=== PATIENT | male | born 1985 | race Caucasian/White ===

== ENCOUNTER 2020-09-20 08:48 | Emergency (ER) | payer BC, SELFPAY ==
[2020-09-20 09:00] VITALS: BP 150/110; PULSE 75; RESP 18; TEMP 37.1; O2SAT 100; BMI 25.0
[2020-09-20 09:06] VITALS: BP 132/108; PULSE 79; RESP 18; O2SAT 99
--- NOTE | 2020-09-20 09:09 | W.ED.SOB ---
HPI - SOB/Dyspnea General: Chief Complaint: Shortness of Breath/Dyspnea Stated Complaint: light headed, R arm numb, fatigue Time Seen by Provider: 09/20/20 08:51 History of Present Illness: HPI Narrative: Patient is a 35-year-old male who comes to the ED with shortness of breath and fatigue. He also has come planing of having an episode of right and left hand numbness that occurred right when he woke up but have since resolved. Today when he woke up this morning he said he felt a little short of breath and fatigued. He also described having some mild chest discomfort as well. He also states he was getting a little anxious about his hand numbness when he woke up as well. Denies any history of anxiety and endorses just normal work stress currently. He says his symptoms have improved since coming here to the ED. Denies any history of lung or cardiac issues. He denies any diaphoresis, nausea/vomiting. He states that last night he did not drink any alcohol any just ate some barbecue food for dinner. Patient's came into the room and added some history for patient. 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 She also stated that she has been really sick and vomiting a lot and is 4 months , so patient has had to take care of her a lot lately. She was saying that patient is under a lot of stress and has been doing a lot lately and thinks that that might have something to do with the symptoms. Associated symptoms: Deny abdominal pain, chest pain, extremity pain, fever(s), nausea, orthopnea, palpitations or vomiting Review of Systems Const: Reports: fatigue; Denies: fever(s) or chills Eyes: Denies: change in vision or eye discomfort ENMT: Denies: throat pain, odynophagia, nasal discharge or nasal congestion Card: Denies: chest pain, palpitations, edema, swelling of feet/ankles, dyspnea on exertion or orthopnea Resp: Reports: dyspnea; Denies: productive cough or non-productive cough GI: Denies: abdominal pain, nausea, vomiting, diarrhea, constipation or hematochezia : Denies: flank pain, difficulty urinating, dysuria or hematuria Musc: Denies: neck pain, back pain, extremity pain or extremity swelling Skin/Breast: Denies: rash or new lesions Neuro: Reports: numbness in extremities (Episode of numbness and tingling in right and left hands, resolved); Denies: headache(s) or weakness in extremities Physical Exam Const: COMMON NORMALS: no acute distress, patient oriented x3, healthy appearing and alert GENERAL APPEARANCE: cooperative and comfortable HENMT: COMMON NORMALS: normocephalic HEAD & SCALP: normocephalic MOUTH: Normal oral and palatal mucosa present THROAT: posterior oropharynx normal and uvula midline Neck/C-Spine: COMMON NORMALS: supple GENERAL: Yes normal visual inspection Resp: COMMON NORMALS: normal respiratory effort, No retractions, No use of accessory muscles and clear to auscultation bilaterally AUSCULTATION: clear to auscultation bilaterally Cardio: COMMON NORMALS: regular rate, regular rhythm, S1 normal heart sound present, S2 normal heart sound present, No gallops present (Cardio), No clicks present (Cardio), No murmurs present (Cardio) and Peripheral pulses 2+ throughout RATE: regular rate RHYTHM: regular rhythm HEART SOUNDS: S1 normal heart sound present and S2 normal heart sound present PERIPHERAL PULSES: Peripheral pulses 2+ throughout GI: COMMON NORMALS: Normal to inspection, nondistended, normoactive bowel sounds present, Soft to palpation, non-tender and no masses PALPATION: Yes Soft to palpation : COMMON NORMALS: Yes no CVA tenderness BLADDER/KIDNEY EXAM: Yes no CVA tenderness Back/Pelvis: COMMON NORMALS: no CVA tenderness Extremity: RIGHT UPPER EXTREMITY: Yes wrist Right wrist: Yes special tests Right wrist special tests: Phalen's test: Positive LEFT UPPER EXTREMITY: Yes wrist Left wrist: Yes special tests Left wrist special tests: Phalen's test: Positive OTHER: Patient had positive Phalen's test which is suggestive of carpal tunnel syndrome. Neuro: COMMON NORMALS: patient oriented x3 and moves all extremities SENSORIUM/ORIENTATION: Yes alert Skin: GENERAL SKIN EXAM: dry skin Course Vital Signs: Vital signs: Vital Signs Temperature 98.7 F 09/20/20 09:00 Pulse Rate 69 09/20/20 12:43 Respiratory Rate 18 09/20/20 12:43 Blood Pressure 140/90 09/20/20 12:43 Pulse Oximetry 99 09/20/20 12:43 MDM - SOB/Dyspnea MDM Narrative: Medical decision making narrative: Patient is a 35-year-old male comes to the ED with an episode of right and left hand numbness when he woke up that resolved, along with some shortness of breath, generalized weakness, chest discomfort and lightheadedness. Patient appears in no acute distress or pain. He is healthy appearing and showing no signs of any respiratory distress. His vitals are stable. He had a positive Phalen's test on both right and left wrist, so I think carpal tunnel explains is episode of right and left hand numbness when he woke up. The numbness in his hand resolved before he came to the ED. Patient's labs were unremarkable. D-dimer negative. Troponin negative, EKG normal sinus rhythm with no ST segment elevation or depression seen. Chest x-ray showed no acute findings. CT of head showed no acute findings. Patient was given IV fluids in the ED. Was discharged home and diagnosed with generalized muscle weakness and lightheaded feeling. He was told to follow-up with his PCP in 7 days for reevaluation. Return to ED precautions given. Patient understood and agreed with plan. Lab Data: Attestation: I reviewed the patient's lab results. Labs: Lab Results 09/20/20 09/20/20 09/20/20 Range/Units 09:23 09:23 09:23 WBC 5.9 (4.0-10.0) 10^3/ uL RBC 4.62 (4.1-5.3) 10^6/u L Hgb 15.4 (11.7-16.6) g/dL Hct 43.3 (42.0-52.0) % MCV 93.7 (80-94) fL MCH 33.3 (28.0-34.0) pg MCHC 35.6 (30.0-36.0) g/dL RDW 11.9 L (12.1-15.1) % Plt Count 258 (130-400) 10^3/c mm MPV 8.4 (7.4-10.4) fL Neut % (Auto) 71.5 % Lymph % (Auto) 21.9 % [place] % (Auto) 3.8 % Eos % (Auto) 1.4 % Baso % (Auto) 1.2 % Neut # (Auto) 4.19 (1.8-7.7) 10^3/u L Lymph # (Auto) 1.3 (0.8-4.8) 10^3/u L [place] # (Auto) 0.2 (0.2-0.9) 10^3/u L Eos # (Auto) 0.1 (0.0-0.8) 10^3/u L Baso # (Auto) 0.1 (0.0-0.1) 10^3/u L Nucleated RBC % (a uto) 0 % Nucleated RBCs # 0.0 /100WBC D-Dimer (0-0.59) ug/mIFE U Sodium 139 (136-145) mmol/L Potassium 4.3 (3.5-5.1) mmol/L Chloride 102 (98-107) mmol/L Carbon Dioxide 27 (22-29) mmol/L Anion Gap 14.3 (5-19) BUN 13 (6-20) mg/dL Creatinine 1.0 (0.7-1.2) mg/dL GFR Calculation 84.1 L (90-130) mL/min Glucose 102 (65-115) mg/dL Calculated Osmolal ity 288 (285-295) mOsm/k g Calcium 9.1 (8.5-10.5) mg/dL Total Bilirubin 0.4 (0.15-1.2) mg/dL AST 18 (0-40) U/L ALT 17 (0-41) U/L Alkaline Phosphata se 64 (40-130) IU/L Troponin T Baselin e 6 (0-15) ng/L Troponin T 120 Min huslia (0-15) ng/L Delta Troponin T (0-10) ABS# Total Protein 7.4 (6.6-8.7) g/dL Albumin 4.7 (3.5-5.2) g/dL Globulin 2.7 (1.3-4.6) g/dL 09/20/20 09/20/20 Range/Units 09:23 11:27 WBC (4.0-10.0) 10^3/ uL RBC (4.1-5.3) 10^6/u L Hgb (11.7-16.6) g/dL Hct (42.0-52.0) % MCV (80-94) fL MCH (28.0-34.0) pg MCHC (30.0-36.0) g/dL RDW (12.1-15.1) % Plt Count (130-400) 10^3/c mm MPV (7.4-10.4) fL Neut % (Auto) % Lymph % (Auto) % [place] % (Auto) % Eos % (Auto) % Baso % (Auto) % Neut # (Auto) (1.8-7.7) 10^3/u L Lymph # (Auto) (0.8-4.8) 10^3/u L [place] # (Auto) (0.2-0.9) 10^3/u L Eos # (Auto) (0.0-0.8) 10^3/u L Baso # (Auto) (0.0-0.1) 10^3/u L Nucleated RBC % (a uto) % Nucleated RBCs # /100WBC D-Dimer <= 0.27 (0-0.59) ug/mIFE U Sodium (136-145) mmol/L Potassium (3.5-5.1) mmol/L Chloride (98-107) mmol/L Carbon Dioxide (22-29) mmol/L Anion Gap (5-19) BUN (6-20) mg/dL Creatinine (0.7-1.2) mg/dL GFR Calculation (90-130) mL/min Glucose (65-115) mg/dL Calculated Osmolal ity (285-295) mOsm/k g Calcium (8.5-10.5) mg/dL Total Bilirubin (0.15-1.2) mg/dL AST (0-40) U/L ALT (0-41) U/L Alkaline Phosphata se (40-130) IU/L Troponin T Baselin e (0-15) ng/L Troponin T 120 Min huslia 6.00 (0-15) ng/L Delta Troponin T 0 (0-10) ABS# Total Protein (6.6-8.7) g/dL Albumin (3.5-5.2) g/dL Globulin (1.3-4.6) g/dL Imaging Data^: CXR: Attestation: I personally reviewed and interpreted this imaging study as follows: Radiologist's impression: [facility] [address] XRay Report Signed Patient: Jason Jones Unit #: [id number] : 1985 Age/Sex: 35 / M ADM Date: 09/20/20 Loc: ER Room/Bed: Attending Dr: Ordering Provider/Ordering MD: Trung Koroma Date of Service: 09/20/20 Procedure(s): XR chest 1V portable [id number] Accession Number(s): [id number] Report Number: [id number] PROCEDURE INFORMATION: Exam: XR Chest Exam date and time: 09/20/2020 9:17 AM Age: 35 years old Clinical indication: Shortness of breath; Additional info: SOB TECHNIQUE: Imaging protocol: XR of the chest. Views: 1 view. COMPARISON: No relevant prior studies available. FINDINGS: Lungs: Unremarkable. No consolidation. Pleural spaces: Unremarkable. No pleural effusion. No pneumothorax. Heart/Mediastinum: Unremarkable. No cardiomegaly. Bones/joints: Unremarkable. XR/XR chest 1V portable [id number] IMPRESSION: No acute findings. Dictated By: Storm Waters Signed By: Storm Waters Signed Date/Time: 09/20/20 1023 DD/ 1021 CT Head: Attestation: I personally reviewed and interpreted this imaging study as follows: Radiologist's impression: [address] [place] [address] CT Scan Report Signed Patient: Jason Jones Unit #: [id number] : 1985 Age/Sex: 35 / M ADM Date: 09/20/20 Loc: ER Room/Bed: Attending Dr: Ordering Provider/Ordering MD: Trung Koroma Date of Service: 09/20/20 Procedure(s): CT head wo con* [id number] Accession Number(s): [id number] Report Number: [id number] PROCEDURE INFORMATION: Exam: CT Head Without Contrast Exam date and time: 09/20/2020 10:45 AM Age: 35 years old Clinical indication: Other: Weakness TECHNIQUE: Imaging protocol: Computed tomography of the head without contrast. Radiation optimization: All CT scans at this facility use at least one of these dose optimization techniques: automated exposure control; mA and/or kV adjustment per patient size (includes targeted exams where dose is matched to clinical indication); or iterative reconstruction. COMPARISON: No relevant prior studies available. RADIATION DOSE METRICS: Total DLP (mGy-cm): 878.68 FINDINGS: Brain: Normal. No hemorrhage. Unremarkable white matter. No mass effect. Cerebral ventricles: No ventriculomegaly. Paranasal sinuses: Visualized sinuses are unremarkable. No fluid levels. Mastoid air cells: Visualized mastoid air cells are well aerated. Bones/joints: Unremarkable. No acute fracture. Soft tissues: Unremarkable. CT/CT head wo con* [id number] IMPRESSION: No acute intracranial abnormality. Radiation Dose CTDIVOL = (mGy): DLP = 878.68 (mGy-cm) Dictated By: Storm Waters Signed By: Storm Waters Signed Date/Time: 09/20/20 112 DD/ 1121 EKG Data^: EKG 1: Attestation: I personally reviewed and interpreted this EKG as follows: EKG Interpretation Date: 09/20/20 Interpretation: Normal sinus rhythm, 74 bpm, no ST segment elevation or depression seen. Discharge Plan Discharge Patient Disposition: Home Clinical Impression: Generalized muscle weakness, Light-headed feeling Condition: Stable Prescriptions: No Action creatine monohydrate See Rx Instructions .ROUTE .COMPLEX RF: 0 multivitamin 1 tab PO DAILY RF: 0 Discharge Orders: Discharge ED (Routine); Ordered 09/20/20 Ordered By: Trung Koroma Discharge Diet: Regular Discharge Activity: Resume usual activity Patient Instructions: Lightheadedness (ED), Weakness (Generalized) Activity Restrictions/Additional Instructions: Follow-up with medical provider as directed in 7 days for reevaluation. Drink plenty of fluids and stay hydrated today. Rest and limit activity today. Return to the ER or your medical provider if condition worsens. Please read and understand discharge instructions. Thank you for choosing [facility] for your healthcare needs today. Please realize this is an emergency room and that we are providing you with a medical screening exam and this may not be complete and all inclusive of all the testing and or work up that you may need to determine your ailment or severity of your illness. It is very important that you follow up as instructed or that you return to the Emergency Department should you have concerns or if your condition changes or worsens in any way. Coding Level of Care Code ED [employer] for Gricel Moore Exam Comprehensive
--- NOTE | 2020-09-20 09:17 | ECG_ITS ---
[facility] Test Date: 2020-09-20 Pat Name: Jason Jones Department: Room: Gender: Male [employer]er: : 1985 Requested By: Trung Koroma Order Number: [id number] Jesus MD: NALINI SAMSON Measurements Intervals [place] Rate: 74 P: 68 DE: 140 QRS: 71 QRSD: 99 T: 58 QT: 367 QTc: 408 Interpretive Statements SINUS RHYTHM No previous ECG available for comparison Electronically Signed On 09-21-2020 18:50:49 CDT by NALINI SAMSON [email or web address]
--- NOTE | 2020-09-20 09:17 | XRR_ITS ---
PROCEDURE INFORMATION: Exam: XR Chest Exam date and time: 09/20/2020 9:17 AM Age: 35 years old Clinical indication: Shortness of breath; Additional info: SOB TECHNIQUE: Imaging protocol: XR of the chest. Views: 1 view. COMPARISON: No relevant prior studies available. FINDINGS: Lungs: Unremarkable. No consolidation. Pleural spaces: Unremarkable. No pleural effusion. No pneumothorax. Heart/Mediastinum: Unremarkable. No cardiomegaly. Bones/joints: Unremarkable. XR/XR chest 1V portable [id number] IMPRESSION: No acute findings.
[2020-09-20 09:32] LABS: Basophils # 0.1 10^3/uL (0.0-0.1); Basophils % 1.2 %; Eosinophils # 0.1 10^3/uL (0.0-0.8); Eosinophils % 1.4 %; Hematocrit 43.3 % (42.0-52.0); Hemoglobin 15.4 g/dL (11.7-16.6); Lymphocytes # 1.3 10^3/uL (0.8-4.8); Lymphocytes % 21.9 %; Mean Corpuscular HGB Conc 35.6 g/dL (30.0-36.0); Mean Corpuscular Hemoglobin 33.3 pg (28.0-34.0); Mean Corpuscular Volume 93.7 fL (80-94); Mean Platelet Volume 8.4 fL (7.4-10.4); Monocytes # 0.2 10^3/uL (0.2-0.9); Monocytes % 3.8 %; Neutrophils # 4.19 10^3/uL (1.8-7.7); Neutrophils % 71.5 %; Nucleated Red Blood Cells % 0 %; Platelet Count 258 10^3/cmm (130-400); Red Blood Count 4.62 10^6/uL (4.1-5.3); Red Cell Distribution Width 11.9 % (12.1-15.1); White Blood Count 5.9 10^3/uL (4.0-10.0)
[2020-09-20] MEDS: sodium chloride 0.9% 500 ML 999 ML IV (09:34)
[2020-09-20 09:50] LABS: D Dimer <= 0.27 ug/mIFEU (0-0.59)
[2020-09-20 09:52] LABS: Troponin(5th) Baseline 6 ng/L (0-15)
[2020-09-20 09:54] LABS: Alanine Aminotransferase 17 U/L (0-41); Albumin Level 4.7 g/dL (3.5-5.2); Alkaline Phosphatase 64 IU/L (40-130); Aspartate Amino Transferase 18 U/L (0-40); Blood Urea Nitrogen 13 mg/dL (6-20); Calcium 9.1 mg/dL (8.5-10.5); Carbon Dioxide 27 mmol/L (22-29); Chloride 102 mmol/L (98-107); Globulin 2.7 g/dL (1.3-4.6); Glomerular Filtration Rate 84.1 mL/min (90-130); Glucose 102 mg/dL (65-115); Osmolality Calculated 288 mOsm/kg (285-295); Sodium 139 mmol/L (136-145); Total Bilirubin 0.4 mg/dL (0.15-1.2); Total Protein 7.4 g/dL (6.6-8.7)
[2020-09-20 10:13] LABS: Anion Gap 14.3 (5-19); Potassium 4.3 mmol/L (3.5-5.1)
[2020-09-20 10:44] VITALS: BP 136/92; PULSE 70; RESP 18; O2SAT 99
--- NOTE | 2020-09-20 10:45 | CTR_ITS ---
PROCEDURE INFORMATION: Exam: CT Head Without Contrast Exam date and time: 09/20/2020 10:45 AM Age: 35 years old Clinical indication: Other: Weakness TECHNIQUE: Imaging protocol: Computed tomography of the head without contrast. Radiation optimization: All CT scans at this facility use at least one of these dose optimization techniques: automated exposure control; mA and/or kV adjustment per patient size (includes targeted exams where dose is matched to clinical indication); or iterative reconstruction. COMPARISON: No relevant prior studies available. RADIATION DOSE METRICS: Total DLP (mGy-cm): 878.68 FINDINGS: Brain: Normal. No hemorrhage. Unremarkable white matter. No mass effect. Cerebral ventricles: No ventriculomegaly. Paranasal sinuses: Visualized sinuses are unremarkable. No fluid levels. Mastoid air cells: Visualized mastoid air cells are well aerated. Bones/joints: Unremarkable. No acute fracture. Soft tissues: Unremarkable. CT/CT head wo con* [id number] IMPRESSION: No acute intracranial abnormality. Radiation Dose CTDIVOL = (mGy): DLP = 878.68 (mGy-cm)
[2020-09-20 11:48] LABS: Troponin 5 2HR Delta 0 ABS# (0-10)
[2020-09-20 12:43] VITALS: BP 140/90; PULSE 69; RESP 18; O2SAT 99
== END 2020-09-20 12:48 | disposition home or self-care (01) ==
PROVIDERS: Emergency Provider Physician Assistant
DX: M62.81 Muscle weakness (generalized) (principal); R42 Dizziness and giddiness
CPT/HCPCS: 70450; 71045; 80053; 84484; 85025; 85378; 93005; 99283; J7040